=== PATIENT | male | born 1950 | race Caucasian/White ===

== ENCOUNTER 2017-04-24 12:18 | Emergency (ER) | payer OTHER, MEDICARE ==
[~2017-04-24 12:18] MED LIST: ADULT LOW DOSE81 MG PO; ALTACE10 M4 PO; ALTACE10 MG PO; ASPIRIN325 MG PO; CHLORTHALIDONE25 M1 PO; ENTERIC COATED325 M PO; FLOMAX0.4 M1 PO; IBUPROFEN200 M1 PO; IBUPROFEN600 MG PO; LOVENOX40 MG/0.4 SQ; LOW DOSE ASPIRI81 M1 PO; NORCO 7.5/3251 TAB PO; NORVASC5 M2 PO; OXYCONTIN10 M1 PO; PERCOCET 5/3251 TAB PO; XARELTO10 MG PO; [UNRECOGNIZED DRUG - OTHER] PO
[2017-04-24] MEDS ORDERED: ASPIRIN81 M1 PO (12:36)
[2017-04-24] MEDS ORDERED: ANORO ELLIPTA1 EAC1 INH (12:59)
[2017-04-24] MEDS ORDERED: ATORVASTATIN CA20 M1 PO (12:59)
[2017-04-24] MEDS ORDERED: PROAIR HFA8.5 GM INH (13:00)
[2017-04-24] MEDS ORDERED: DYMISTA NASAL S23 G1 (13:00)
[2017-04-24] MEDS ORDERED: CEPHALEXIN500 M1 PO (13:45)
[2017-04-24] MEDS ORDERED: NORCO 5-325 TA1 EACH PO (13:45)
== END 2017-04-24 13:59 ==
LOC: EDMED 12:18
PROC: 0HQFXZZ Repair Right Hand Skin, External Approach (ICD-10-PCS; principal; 2017-04-24)
DX: S62.632A Displaced fracture of distal phalanx of right middle finger, initial encounter for closed fracture (principal); S61.210A Laceration without foreign body of right index finger without damage to nail, initial encounter; I10 Essential (primary) hypertension; F17.200 Nicotine dependence, unspecified, uncomplicated; W27.8XXA Contact with other nonpowered hand tool, initial encounter